=== PATIENT | female | born 1965 | race Caucasian/White ===

== ENCOUNTER 2023-02-16 22:20 | Emergency (ER) | payer OTHER ==
[2023-02-16 22:25] VITALS: PULSE 75; BMI 26.4
[2023-02-16] MEDS ORDERED: DIPHTH,PERTUSS(ACELL),TET 0.5 ML DISP.SYRIN IM ONE (23:39)
[2023-02-17 00:34] VITALS: BP 99/64; RESP 16; TEMP 96.8
[2023-02-17] MEDS ORDERED: DIPHTH,PERTUSS(ACELL),TET 0.5 ML DISP.SYRIN IM ONE ×2 (00:47→00:52)
== END 2023-02-17 02:18 | disposition home or self-care (01) ==
LOC: JER 22:20 → JERFT 22:20 → JER 02-17 02:18
PROC: 0HQFXZZ Repair Right Hand Skin, External Approach (ICD-10-PCS; principal; 2023-02-16)
PROC: 3E0234Z Introduction of Serum, Toxoid and Vaccine into Muscle, Percutaneous Approach (ICD-10-PCS; 2023-02-17)
DX: S61.011A Laceration without foreign body of right thumb without damage to nail, initial encounter (principal); W25.XXXA Contact with sharp glass, initial encounter; Y93.89 Activity, other specified; Y92.9 Unspecified place or not applicable
CPT/HCPCS: 73140-TC-RT-FY; 90715; 99283-25